=== PATIENT | male | born 1995 | race American Indian/Alaskan Native ===

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

== ENCOUNTER 2017-03-13 17:47 | Emergency (ER) | payer SELFPAY ==
[2017-03-13 19:26] LABS: Basophils % (Auto) 0.4 % (0.0-1.8); Eosinophils # (Auto) 0.1 K/mm3 (0.0-0.4); Eosinophils % (Auto) 1.3 % (0.0-4.3); Hematocrit 40.2 % (35.5-45.6); Hemoglobin 13.3 gm/dl (11.8-15.2); Lymphocytes # (Auto) 1.7 K/mm3 (1.2-5.4); Lymphocytes % (Auto) 24.4 % (13.4-35.0); Mean Corpuscular HGB Conc 33 % (32-34); Mean Corpuscular Hemoglobin 29 pg (28-32); Mean Corpuscular Volume 87 fl (84-94); Monocytes # (Auto) 0.6 K/mm3 (0.0-0.8); Monocytes % (Auto) 7.9 % (0.0-7.3); Platelet Count 218 K/mm3 (140-440); Red Blood Count 4.62 M/mm3 (3.65-5.03)
[2017-03-13 19:38] LABS: Bilirubin,Urine NEG (Negative); Blood,Urine SM (Negative); Nitrite,Urine NEG (Negative); Protein,Urine <15 mg/dL mg/dL (Negative); Urobilinogen,Urine < 2.0 mg/dL (<2.0)
[2017-03-13 19:44] LABS: Color,Urine Colorless (Yellow); WBC,Urine < 1.0 /HPF (0.0-6.0)
[2017-03-13 19:44] LABS: BUN/Creatinine Ratio 12; Blood Urea Nitrogen 11 mg/dL (9-20); Calcium 9.8 mg/dL (8.4-10.2); Hemolysis Index 1
[2017-03-13 19:54] LABS: Amphetamine Screen,Urine PRESUMPTIVE NEGATIVE; Benzodiazepines Screen,Urine PRESUMPTIVE NEGATIVE; Cannabinoid Screen,Urine PRESUMPTIVE NEGATIVE; Cocaine Screen,Urine PRESUMPTIVE NEGATIVE; Methadone Screen,Urine PRESUMPTIVE NEGATIVE; Opiate Screen,Urine PRESUMPTIVE NEGATIVE
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
[2017-03-13] MEDS ORDERED: NACL 0.9% 1000 ML 1,000 ML IV ONE (21:15)
[2017-03-14 00:14] LABS: BUN/Creatinine Ratio 11; Blood Urea Nitrogen 10 mg/dL (9-20); Calcium 9.1 mg/dL (8.4-10.2); Hemolysis Index 16
--- NOTE | 2017-03-14 10:55 | Consultation ---
History of Present Illness - Reason for Consult Consult date: 03/14/17 Reason for consult: Mental Health Evaluation Requesting physician: KAYLEIGH GIBSON - Chief Complaint Chief complaint: "My life is not right" - History of Present Psychiatric Illness 22 y.o. male presenting to [facility] for suicide attempt. Today the patient is calm and cooperative during the assessment. He stated that he wanted his life to be over yesterday. He stated that he took multiple pills to "." He stated that he didn't have a reason to live yesterday, so he text his sister and mother a video swallowing multiple pills. He would not elaborate when he was asked about any stressors in his life that may have caused his crisis. He denies any previous attempts of suicide. He stated, "I am good now, can I leave." He denies SI/HI's and AVH's. He denies any manic episodes in the past. He denies a poor appetite and sleep disturbance. He denies recreational drug use and alcohol consumption (etoh). Medications and Allergies Allergies Allergy/AdvReac Type Severity Reaction Status Date / Time No Known Allergies Allergy Unverified 07/23/16 23:22 Home Medications Medication Instructions Recorded Confirmed Last Taken Type Cyclobenzaprine [Flexeril] 10 mg PO QHS PRN #20 tablet 07/24/16 03/13/17 Rx Naproxen [Naprosyn] 500 mg PO BID #30 tablet 07/24/16 03/13/17 03/13/17 Rx Past psychiatric history - Past Medical History Past Medical History: No medical history Past Surgical History: No surgical history - past Psychiatric treatment and history psychiatric treatment history: Denies a psy hx and fam psy hx. - Social History Social history: lives with family Mental Status Exam - Vital signs Last Vital Signs Temp 98.3 F 03/13/17 18:30 Pulse 74 03/13/17 18:30 Resp 14 03/13/17 18:30 BP 115/75 03/13/17 18:30 Pulse Ox 97 03/13/17 18:30 - Exam Narrative exam: MSE: Appearance: calm, cooperative Behavior: regular eye contact Speech: regular rate and tone Mood: "okay" withdrawn, sad Affect: flat Thought Process: circumstantial Thought Content: denies SI/HI's and AVH's Motor Activity: ambulatory Cognition: A/O x3 Insight: variable Judgment: variable Results Result Diagrams: 03/13/17 19:05 03/13/17 23:32 Abnormal lab results 03/13/17 03/13/17 03/13/17 Range/Units 19:05 19:05 23:32 RDW 12.0 L (13.2-15.2) % [place] % (Auto) 7.9 H (0.0-7.3) % Glucose (75-100) mg/dL Salicylates < 0.3 L < 0.3 L (2.8-20.0) mg/dL 03/13/17 Range/Units 23:32 RDW (13.2-15.2) % [place] % (Auto) (0.0-7.3) % Glucose 70 L (75-100) mg/dL Salicylates (2.8-20.0) mg/dL All other labs normal. Assessment and Plan Assessment and plan: Impression: Unspecified MDD Single Episode. Today the patient is calm and cooperative during the assessment. DDx: R/O Bipolar DO Recommendation/Plan: Continue 1013 with placement to [facility] today.
[2017-03-14 12:01] VITALS: BP 141/94
== END 2017-03-14 11:45 ==
LOC: ED 17:47
DX: T50.992A Poisoning by other drugs, medicaments and biological substances, intentional self-harm, initial encounter (principal); F32.9 Major depressive disorder, single episode, unspecified; Z79.899 Other long term (current) drug therapy; Y93.89 Activity, other specified; Y99.8 Other external cause status; Y92.89 Other specified places as the place of occurrence of the external cause
CPT/HCPCS: 36415; 80048; 80307; 81001; 85025; 93005; 93010; 96360; 99285; G0480; J7030; 80320

== ENCOUNTER 2017-03-14 16:56 | Emergency (ER) | payer OTHER ==
[2017-03-14 19:28] LABS: Basophils % (Auto) 0.4 % (0.0-1.8); Eosinophils # (Auto) 0.1 K/mm3 (0.0-0.4); Hematocrit 39.3 % (35.5-45.6); Hemoglobin 12.8 gm/dl (11.8-15.2); Lymphocytes # (Auto) 1.6 K/mm3 (1.2-5.4); Lymphocytes % (Auto) 20.2 % (13.4-35.0); Mean Corpuscular HGB Conc 33 % (32-34); Mean Corpuscular Hemoglobin 29 pg (28-32); Mean Corpuscular Volume 87 fl (84-94); Monocytes # (Auto) 0.6 K/mm3 (0.0-0.8); Monocytes % (Auto) 7.7 % (0.0-7.3); Platelet Count 218 K/mm3 (140-440)
[2017-03-14 19:43] LABS: BUN/Creatinine Ratio 8; Blood Urea Nitrogen 10 mg/dL (9-20); Calcium 9.3 mg/dL (8.4-10.2); Hemolysis Index 10
[2017-03-14] MEDS ORDERED: ZOFRAN ODT PO ONE (20:25)
[2017-03-14 23:50] LABS: Bilirubin,Urine NEG (Negative); Blood,Urine NEG (Negative); Color,Urine Amber (Yellow); Mucus,Urine FEW /HPF; Nitrite,Urine NEG (Negative); Urobilinogen,Urine < 2.0 mg/dL (<2.0)
[2017-03-15 00:34] LABS: Benzodiazepines Screen,Urine PRESUMPTIVE NEGATIVE; Cannabinoid Screen,Urine PRESUMPTIVE NEGATIVE; Cocaine Screen,Urine PRESUMPTIVE NEGATIVE; Methadone Screen,Urine PRESUMPTIVE NEGATIVE; Opiate Screen,Urine PRESUMPTIVE NEGATIVE
[2017-03-15 00:52] LABS: Amphetamine Screen,Urine PRESUMPTIVE POSITIVE
--- NOTE | 2017-03-15 01:37 | Emergency Department Report ---
ED Psych HPI - General Chief Complaint: Psych Stated Complaint: MH Time Seen by Provider: 03/14/17 19:41 Source: EMS Mode of arrival: Stretcher - History of Present Illness Initial Comments: Patient is a 22-year-old Marshallese male who is presenting with nausea vomiting. Patient was here yesterday for suicidal watch after a nontoxic overdose. Patient was accepted to psych facility however he vomited once at the psych facility [facility] and back to be reevaluated. Patient states he has no further nausea or vomiting fevers chills. Patient states he has not taken any illicit medications since leaving our facility. - Related Data Previous Rx's Medication Instructions Recorded Last Taken Type Cyclobenzaprine [Flexeril] 10 mg PO QHS PRN #20 tablet 07/24/16 03/13/17 Rx Naproxen [Naprosyn] 500 mg PO BID #30 tablet 07/24/16 03/13/17 Rx Allergies Allergy/AdvReac Type Severity Reaction Status Date / Time No Known Allergies Allergy Unverified 07/23/16 23:22 ED Review of Systems ROS: Stated complaint: MH Other details as noted in HPI Comment: All other systems reviewed and negative ED Past Medical Hx - Past Medical History Previous Medical History?: Yes Hx Psychiatric Treatment: Yes - Surgical History Past Surgical History?: No - Social History Smoking Status: Never Smoker - Medications Home Medications: Home Medications Medication Instructions Recorded Confirmed Last Taken Type Cyclobenzaprine [Flexeril] 10 mg PO QHS PRN #20 tablet 07/24/16 03/14/17 Rx Naproxen [Naprosyn] 500 mg PO BID #30 tablet 07/24/16 03/14/17 03/13/17 Rx ED Physical Exam - General Limitations: No Limitations General appearance: alert, in no apparent distress - Head Head exam: Present: atraumatic, normocephalic - Eye Eye exam: Present: normal appearance - ENT ENT exam: Present: mucous membranes moist - Neck Neck exam: Present: normal inspection - Respiratory Respiratory exam: Present: normal lung sounds bilaterally. Absent: respiratory distress - Cardiovascular Cardiovascular Exam: Present: regular rate, normal rhythm. Absent: systolic murmur, diastolic murmur, rubs, gallop - GI/Abdominal GI/Abdominal exam: Present: soft, normal bowel sounds - Rectal Rectal exam: Present: deferred - Extremities Exam Extremities exam: Present: normal inspection - Back Exam Back exam: Present: normal inspection - Neurological Exam Neurological exam: Present: alert, oriented X3 - Psychiatric Psychiatric exam: Present: normal affect, normal mood - Skin Skin exam: Present: warm, dry, intact, normal color. Absent: rash ED Course Vital Signs 03/14/17 03/14/17 17:18 23:01 Temperature 98.5 F Pulse Rate 100 H 82 Respiratory 16 18 Rate Blood Pressure 120/65 Blood Pressure 136/87 [Left] O2 Sat by Pulse 98 98 Oximetry ED Medical Decision Making - Lab Data Result diagrams: 03/14/17 19:02 03/14/17 19:02 - Medical Decision Making Patient is again medically cleared for psych facility at this time Critical care attestation.: If time is entered above; I have spent that time in minutes in the direct care of this critically ill patient, excluding procedure time. ED Disposition Clinical Impression: Suicidal ideation Disposition: [id number]/TX-65 PSY HOSP/PSY UNIT Is pt being admited?: No Does the pt Need Aspirin: No Condition: Stable Referrals: DARION VENEGAS MD [Primary Care Provider] - 3-5 Days
[2017-03-15] MEDS ORDERED: NACL 0.9% 1000 ML 1,000 ML IV ONE (10:10)
[2017-03-15] MEDS ORDERED: NACL 0.9% 1000 ML 1,000 ML ONE ×3 (10:13→10:14)
--- NOTE | 2017-03-15 15:19 | Progress Note ---
Subjective - Reason for Consult Consult date: 03/15/17 Reason for consult: Psychiatry Follow-up - Chief Complaint Chief complaint: "I am okay" This patient was returned back to [facility] for medical clearance by the mental health facility. 22 y.o. male presenting to [facility] for suicide attempt. Today the patient is calm and cooperative during the assessment. He continue to stated that he is "okay" when asked about his mental stability. The patient is withdrawn on observation. He stated getting his life together is priority at this time. He denies SI/HI's and AVH's. Mental Status Exam - Vital signs Last Vital Signs Temp 98.5 F 03/14/17 23:01 Pulse 82 03/14/17 23:01 Resp 18 03/14/17 23:01 BP 136/87 03/14/17 23:01 Pulse Ox 98 03/14/17 23:01 - Exam Narrative exam: MSE: Appearance: calm, cooperative Behavior: regular eye contact Speech: regular rate and tone Mood: "okay" withdrawn, sad Affect: flat Thought Process: circumstantial Thought Content: denies SI/HI's and AVH's Motor Activity: ambulatory Cognition: A/O x3 Insight: variable Judgment: variable Assessment and Plan Impression: Unspecified MDD Single Episode. Today the patient is calm and cooperative during the assessment. DDx: R/O Bipolar DO Recommendation/Plan: Continue 1013 with placement to inpatient psy services. Start Zoloft 50 mg PO daily for depression. Discussed possible sucidality/ medication induced [facility] with patient reference Zoloft.
[2017-03-15] MEDS: ZOLOFT PO SCH (18:44)
[2017-03-16] MEDS: ZOLOFT PO SCH (10:13)
--- NOTE | 2017-03-16 18:31 | Progress Note ---
Subjective - Reason for Consult Consult date: 03/16/17 Reason for consult: psychiatric follow-up Requesting physician: LEON STRICKLAND - Chief Complaint Chief complaint: "I did have suicidal thoughts" 22-year-old male presented to the [facility], emergency room due to having suicidal thoughts. Stressors include losing his job and financial stressors. Patient did report having suicidal thoughts, when he did not have money to pay for his rent, and was looking at possible eviction. He did report feeling sad and down at that time. He however denies any current suicidal ideations. He also denies any auditory hallucinations and denies any paranoia. Mental Status Exam - Vital signs Last Vital Signs Temp 97.7 F 03/16/17 08:11 Pulse 80 03/16/17 08:11 Resp 16 03/16/17 08:11 BP 113/72 03/16/17 08:11 Pulse Ox 99 03/16/17 08:11 - Exam Orientation: time, place, person Affect: depressed, anxious Mood: fearful, anxious (denies current suicidal or homicidal ideations and denies any auditory visual hallucinations.) Thought Process: Intact Perceptions: none Speech: normal rate and pattern Concentration: focused Motor activity: normal Level of consciousness: alert Memory: Intact Sleep Symptoms: Difficulty Falling Asleep Appetite: increased Interaction: guarded, defensive Assessment and Plan Recommendation and plan: Major depressive disorder single episode Plan: Continue patient on 1013, and facilitate inpatient psychiatric hospitalization. Continue patient on Zoloft 50 mg daily to help with his depressive symptoms. Will continue to follow up with the patient.
[2017-03-17] MEDS: ZOLOFT PO SCH (10:05)
[2017-03-18] MEDS: ZOLOFT PO SCH (10:45)
--- NOTE | 2017-03-18 11:39 | Progress Note ---
Subjective - Reason for Consult Consult date: 03/18/17 Reason for consult: Psychiatry Follow-up - Chief Complaint Chief complaint: "I am good now" 22-year-old male presented to the [facility], emergency room due to having suicidal thoughts. Today the patient is calm and cooperative during the assessment. He stated that he is "good" and should be able to go home. He asked about his suicidal attempt, he stated, "I am good now." He would not elaborate more about his actions. He denies any side effects of his medications. Mental Status Exam - Vital signs Last Vital Signs Temp 99.1 F 03/17/17 16:06 Pulse 80 03/18/17 04:50 Resp 18 03/18/17 04:50 BP 115/76 03/17/17 16:06 Pulse Ox 96 03/18/17 04:50 - Exam Narrative exam: MSE: Appearance: calm, cooperative Behavior: regular eye contact Speech: regular rate and tone Mood: "okay" Affect: flat Thought Process: circumstantial Thought Content: denies SI/HI's and AVH's Motor Activity: ambulatory Cognition: A/O x3 Insight: variable Judgment: variable Assessment and Plan Impression: Unspecified MDD Single Episode. Today the patient is calm and cooperative during the assessment. The patient minimizes his actions. DDx: R/O Bipolar DO Recommendation/Plan: Continue 1013 with placement to inpatient psy services. Continue Zoloft 50 mg PO daily for depression. Discussed possible sucidality/ medication induced [facility] with patient reference Zoloft.
[2017-03-19] MEDS: ZOLOFT PO SCH (10:20)
[2017-03-19 10:56] VITALS: BP 121/75
--- NOTE | 2017-03-19 11:52 | Progress Note ---
Subjective - Reason for Consult Consult date: 03/19/17 Reason for consult: Psychiatry Follow-up - Chief Complaint Chief complaint: "I am very sorry" 22-year-old male presented to the [facility], emergency room due to having suicidal thoughts. Today the patient is calm and cooperative during the assessment. He stated that he would like to follow up with outpatient psy services when discharged. He stated that he made a "terrible decision" when he took multiple pills. He denies SI/HI's and AVH's. He denies any side effects of his medication. Per collateral information from his sister Francisco García at [phone], she stated that her brother was dealing with some stressors prior to his admission to the hospital. She stated that she was not aware of the stressor, but they have talked since his admission and feel that they can work them out. She stated that her brother has never attempted suicide in the past. She stated that she will be able to pick him up once discharged. Mental Status Exam - Vital signs Last Vital Signs Temp 98.5 F 03/19/17 10:55 Pulse 77 03/19/17 10:55 Resp 16 03/19/17 10:55 BP 121/75 03/19/17 10:55 Pulse Ox 97 03/19/17 10:55 - Exam Narrative exam: MSE: Appearance: calm, cooperative Behavior: regular eye contact Speech: regular rate and tone Mood: "okay" Affect: congruent to mood Thought Process: logical Thought Content: denies SI/HI's and AVH's Motor Activity: ambulatory Cognition: A/O x3 Insight: fair Judgment: fair Assessment and Plan Impression: Unspecified MDD Single Episode. Today the patient is calm and cooperative during the assessment. The patient is no threat to self. DDx: R/O Bipolar DO I. This screening and assessment is based on information collected from the following sources: II. SUICIDE RISK SCREENING (within last 30 days): A.) Suicidal thoughts/behaviors: yes SUICIDE RISK ASSESSMENT III. FACTORS THAT INCREASE RISK: A.) Demographic and Substance Use Factors: None B.) Current/Recent Factors (within past 3 months): Psychosocial/Environmental Factors: Life Stressors Physical Illness: None Cognitive/Psychological Factors: None C.) Historical Factors: None D.) Diagnostic/Symptom/Treatment Factors: None E.) Acute Risk Factor Severity (DESC; MILD/MOD/SEVERE): Mild Other factors for this individual that increase risk: None IV. FACTORS THAT DECREASE RISK: Resilience/Protective Factors: Patient want to decrease his Other factors for this individual that decrease risk: Patient denies a desire to harm self V. Clinician's Formulation of Risk and Determination of level of Care: This is a 22-year-old male who was experiencing stress and take multiple pills to end his life. He stated that he wanted to kill himself to ease his mental pain. He stated that he should have handled the situation differently. He stated that he will follow-up with outpatient services once discharged. He stated that his mental stability is priority once discharged. Since being hospitalized the patient has consistently denied the desire to harm himself. Additionally, he has become insightful about how to better address his current issues. Patient is not impaired by substance. He is able to take care of his ADLs and is not at imminent risk of harm to self or others. Consequently, it is the opinion of the treatment team that the patient is at low risk of suicide and does not meet criteria to continue an involuntary psychiatric hold. Estimation of Imminent Risk: Low due to the above explanation. Determination of Level of Care based on Suicide Risk: Outpatient follow-up. Narrative description of clinical reasoning. (This must be completed on all patients): . Plan and Interventions based on Suicide Risk: This patient will likely be stepped down to an outpatient mental health center in the community upon discharge and follow-up within 7 days of his discharge from the hospital. VII. Discharge/After Hours Support Plan: Patient can return back to the ER, call 911 or crisis line if symptoms of depression, anxiety, suicidality return. Recommendation/Plan: Rescind 1013. Continue Zoloft 50 mg PO daily for depression. Discussed possible sucidality/medication induced [facility] with patient reference Zoloft. The patient given outpatient psy services for [facility]. Discussed generalized coping skills with the patient.
== END 2017-03-19 16:32 ==
LOC: ED 16:56 → EEVIPCON 16:56 → ED 03-19 16:32
DX: R45.851 Suicidal ideations (principal)
CPT/HCPCS: 36415; 80048; 80307; 81001; 85025; 96360; 99285; G0480; J7030; 80320; Q0162

== ENCOUNTER 2018-02-11 06:00 | Emergency (ER) | payer OTHER ==
[2018-02-11] MEDS ORDERED: TYLENOL PO ONE (06:57)
[2018-02-11] MEDS ORDERED: TYLENOL ONE (06:57)
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
[2018-02-11] MEDS ORDERED: NORCO 5/325 ONE (12:36)
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
[2018-02-11] MEDS ORDERED: NORCO 5/325 PO ONE (12:58)
[2018-02-11 13:18] VITALS: BP 113/59
== END 2018-02-11 13:35 | disposition home or self-care (01) ==
LOC: ED 06:00
DX: S43.402A Unspecified sprain of left shoulder joint, initial encounter (principal); S13.4XXA Sprain of ligaments of cervical spine, initial encounter; S00.81XA Abrasion of other part of head, initial encounter; S00.83XA Contusion of other part of head, initial encounter; J45.909 Unspecified asthma, uncomplicated; V47.5XXA Car driver injured in collision with fixed or stationary object in traffic accident, initial encounter; Y93.89 Activity, other specified; Y92.410 Unspecified street and highway as the place of occurrence of the external cause; Y99.8 Other external cause status
CPT/HCPCS: 70450; 70486; 72125